=== PATIENT | male | born 1995 | race African-American/Black ===

== ENCOUNTER 2024-07-06 17:25 | Emergency (ER) | payer OTHER, SELFPAY ==
[2024-07-06 17:34] VITALS: BP 112/83
[2024-07-06 18:00] LABS: % Basophils 0.4 % (0-2); % Eosinophils 0.7 % (0-6); % Immature Granulocytes 0.4 % (0-0.5); % Lymphocytes 48.8 % (20.5-51.1); % Neutrophils 39.7 % (42.2-75.2); Absolute Lymphocytes 2.2 10^3/uL (1.2-3.4); Absolute Monocytes 0.5 10^3/uL (0.1-0.6); Absolute Neutrophils 1.8 10^3/uL (1.4-6.5); Hematocrit 40.2 % (39.0-52.0); Hemoglobin 13.7 g/dL (13.0-18.0); Mean Corp Hgb Conc. 34.1 g/dL (33.0-37.0); Mean Corpuscular Hgb 27.3 pg (27.0-31.0); Mean Corpuscular Volume 80.1 fL (80.0-94.0); Mean Platelet Volume 8.6 fL (7.4-10.4); Nucleated Red Blood Cells % 0 % (-); Platelet Count 265 10^3/uL (130-400); Red Blood Cell Count 5.02 10^6/uL (4.70-6.10); Red Cell Dist. Width 17.3 % (11.5-14.5); White Blood Cell Count 4.5 10^3/uL (4.8-10.8)
[2024-07-06 18:09] LABS: Amphetamines Negative (Negative); Barbiturates Negative (Negative); Benzodiazepines Negative (Negative); Buprenorphine Negative (Negative); Cocaine Negative (Negative); Marijuana Negative (Negative); Methadone Negative (Negative); Methamphetamines Negative (Negative); Opiates Negative (Negative); Phencyclidine Negative (Negative); Tricyclic Antidepressants Negative (Negative)
[2024-07-06 18:11] LABS: ALT (SGPT) 18 U/L (0-50); AST (SGOT) 23 U/L (17-59); Albumin 4.4 g/dl (3.5-5.0); Alkaline Phosphatase 59 U/L (38-126); Blood Urea Nitrogen 10 mg/dl (9-20); Calcium 9.6 mg/dl (8.4-10.2); Carbon Dioxide 28 mmol/L (22-30); Chloride 101 mmol/L (98-107); Glucose 97 mg/dl (70-99); Lipase 36 U/L (23-300); Potassium 4.3 mmol/L (3.5-5.1); Sodium 137 mmol/L (135-145); Total Bilirubin 0.3 mg/dl (0.2-1.3); Total Protein 7.2 g/dl (6.3-8.2); eGFR > 60.00
[2024-07-06 18:13] LABS: Alcohol None Detected
[2024-07-06 18:23] LABS: COVID-19 Antigen Negative (Negative)
[2024-07-06 22:42] VITALS: BP 104/77
--- NOTE | 2024-07-06 22:45 | EDRN ---
Called SUZANNE about patient
[2024-07-06 23:00] VITALS: BP 107/68
--- NOTE | 2024-07-06 23:34 | ED.GENMED ---
History of Present Illness
General
Chief Complaint: Alcohol Problem
Time Seen by Provider: 07/06/24 23:31
History of Present Illness
History of Present Illness:
Patient is a 29-year-old male with history of alcohol use presenting to the emergency department requesting detox. He states that he drinks 6-8 bottles of beer a day. Last treatment 11 AM. Does not feel that he is going through withdrawal
currently. Has gone to rehab before. Has never had withdrawal seizures. Also states that he uses meth. Last use 3 to 4 days ago. He denies any medical complaints at this time. He denies any SI or HI. No hallucinations or delusions. Denies
any other drug use.
Past History
Past History
ED Past Medical History: None and Other (Sickle cell trait)
ED Past Surgical History: None
Social History
Tobacco: Smoker
Alcohol: None
Family History
Family History: Other (Sickle cell)
Phy Exam
Physical Exam
Physical Exam:
GENERAL: in no acute distress
HEENT: normocephalic, extraocular movements intact, moist oral mucosa
NECK: normal inspection
RESPIRATORY: no respiratory distress, clear to auscultation bilaterally
CARDIOVASCULAR: regular rate and rhythm
ABDOMEN/: soft, non-distended, non-tender to palpation, no rebound or guarding
EXTREMITIES: non-tender, no edema/swelling
NEUROLOGIC: awake and alert, moves all extremities
SKIN: warm
Scores
Withdrawal Assessment of Alcohol
Withdrawal Assessment Completed?: Yes
Nausea and Vomiting: No nausea and no vomiting
Tactile Disturbances: None
Tremor: No tremor
Auditory Disturbances: Not present
Paroxysmal Sweats: No sweat visible
Visual Disturbances: Not present
Anxiety: No anxiety, at ease
Headache, Fullness in Head: Not present
Agitation: Normal activity
Orientation and clouding of sensorium: Oriented and can do serial additions
Total CIWA Score: 0
Alcohol Withdrawal Medication Recommendation: Equal to MSAS Score 0-4. Monitor & re-assess q2hrs, NO MEDICATION NEEDED
Course
Orders/Labs/Results
Orders:
Orders
07/06/24 17:44
Alcohol Urgent
COVID-19 Antigen Urgent
Source: Nasal Swab
Complete Blood Count/With Diff Urgent
Comprehensive Metabolic Panel Urgent
Lipase Urgent
Influenza A+B Rapid Molecular Urgent
CECILIA Source: Nasal Swab
Specimen Description:
07/06/24 17:48
Urine Drug Abuse Screen Urgent
Date Specimen was Collected: 07/06/24
Time Specimen was Collected: 17:39
Abnormal Lab Results
07/06/24
17:44
WBC 4.5 L 10^3/uL
(4.8-10.8)
RDW 17.3 H %
(11.5-14.5)
Neutrophils % 39.7 L %
(42.2-75.2)
Monocytes % 10.0 H %
(1.7-9.3)
07/06/24 17:44
07/06/24 17:44
Vital Signs
Initial and Last Documented VS:
Initial Vital Signs
Temp Pulse Resp BP Pulse Ox
97.7 F 100 20 112/83 99
07/06/24 17:34 07/06/24 17:34 07/06/24 17:34 07/06/24 17:34 07/06/24 17:34
Last Documented Vital Signs
Temp Pulse Resp BP Pulse Ox
97.7 F 109 22 106/67 98
07/06/24 17:34 07/07/24 00:15 07/07/24 00:15 07/07/24 00:00 07/06/24 22:42
MDM/Problems Addressed
Differential Diagnosis Includes:
Patient is a 29-year-old man with history of alcohol use disorder presenting to the emergency department requesting detox. Vitals unremarkable and on exam patient is not going through withdrawal. Given that he has no other medical complaints will
discuss with [facility] for detox placement. Will continue to monitor MSAS score and give benzos as needed
*Critical Care Note
Total Time (30-74mins, 75-104mins- exclusive of procedures): Not Applicable
Update Note
Update Note:
On reevaluation patient resting comfortably. MSAS score remains 0.
Patient was accepted to [facility]. Unfortunately patient left without being discharged or his discharge paperwork as a medical [employer] arrived and they texted him.
ED Attending Note
-
Portions of this chart may have been created with voice recognition software.� Occasional wrong word or��sound alike� substitutions may have occurred due to the inherent limitations of voice recognition software.
Discharge Plan
Departure
Prescriptions:
No Action
emtricitabine-tenofovir (TDF) [Truvada] 200-300 mg tablet
1 tab PO DAILY Qty: 4 0RF
Isentress 400 mg tablet
400 mg PO BID Qty: 9 0RF
Referrals:
UNKNOWN - PT NOT,INTERVIEWE [Family Provider] -
Interventions
Interventions:
*Risk Screen - Suicide Last Done: 07/06/24 17:26
*General Assessment Last Done: 07/06/24 17:34
*Neglect/Abuse Screening Last Done: 07/06/24 17:34
ED- Fall Risk Assessment Last Done: 07/06/24 22:40
*ED COVID-19 Vaccine History Last Done: 07/06/24 22:40
ED- Neurological Assessment Last Done: 07/06/24 22:40
ED-Psychological Assessment Last Done: 07/06/24 22:40
Discharge Date and Time
Print Language: [place]ET[place]
[2024-07-07] VITALS: BP 106/67
--- NOTE | 2024-07-07 00:17 | EDRN ---
Patient given something to eat, call corona in reach, no signs of withdraw at this time.
--- NOTE | 2024-07-07 00:42 | EDRN ---
SUZANNE spoke with patient, he will be going to [facility], waiting to find out what time transport will be here for him.
--- NOTE | 2024-07-07 01:00 | EDRN ---
Per [facility], patient was picked up by anthony Calvo at 0045
== END 2024-07-07 02:17 | disposition other institution (70) ==
LOC: EMR 17:25
PROVIDERS: Emergency Medicine; EMERGENCY PHYSICIAN Student in an Organized Health Care Education/Training Program
DX: F10.10 Alcohol abuse, uncomplicated (principal); D57.3 Sickle-cell trait; F17.200 Nicotine dependence, unspecified, uncomplicated
CPT/HCPCS: 99283; 80053; 80306; 82077; 83690; 85025; 87502; 87811

== ENCOUNTER 2024-09-28 17:31 | Emergency (ER) | payer SELFPAY ==
[2024-09-28 17:33] VITALS: BP 97/63
[2024-09-28 17:51] VITALS: BMI 21.8
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
== END 2024-09-28 18:49 | disposition home or self-care (01) ==
LOC: EMR 17:31
PROVIDERS: EMERGENCY PHYSICIAN Emergency Medicine
DX: S09.90XA Unspecified injury of head, initial encounter (principal); W20.8XXA Other cause of strike by thrown, projected or falling object, initial encounter; Y99.0 Civilian activity done for income or pay; D57.3 Sickle-cell trait; F17.200 Nicotine dependence, unspecified, uncomplicated
CPT/HCPCS: 99282